=== PATIENT | male | born 1990 | race African-American/Black ===

== ENCOUNTER 2020-10-28 09:40 | Outpatient (REF) | payer MEDICAID, SELFPAY | END 2020-10-28 09:41 | disposition home or self-care (01) | LOC: HO.SCI 09:40 | PROVIDERS: Visit Provider Family Medicine | DX: Z13.89 Encounter for screening for other disorder (principal) ==

== ENCOUNTER 2020-11-26 11:14 | Outpatient (REF) | payer MEDICAID, SELFPAY ==
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
== END 2020-11-26 11:15 | disposition home or self-care (01) ==
LOC: HO.XRAY 11:14
PROVIDERS: PCP Family Medicine; Visit Provider Family Medicine
DX: M79.631 Pain in right forearm (principal)
CPT/HCPCS: 73080; 73090

== ENCOUNTER 2020-12-19 09:54 | Outpatient (REF) | payer MEDICAID, SELFPAY ==
--- NOTE | 2020-12-19 10:00 | EMG_ITS ---
Right median and ulnar motor and sensory studies were obtained. Right radial sensory study was obtained and paraspinal muscles were tested. IMPRESSION: Mild right ulnar neuropathy across cubital tunnel. MD ADY Moreland/[facility]IS / [id number]
== END 2020-12-19 09:55 | disposition home or self-care (01) ==
LOC: HO.NEURO 09:54
PROVIDERS: PCP Family Medicine; Visit Provider Family Medicine
DX: M79.631 Pain in right forearm (principal)
CPT/HCPCS: 95886; 95909

== ENCOUNTER → 2021-01-03 10:31 | Outpatient (BNVA) | payer MEDICAID, SELFPAY | PROVIDERS: PCP Family Medicine; Visit Provider Nurse Practitioner Family | DX: G56.21 Lesion of ulnar nerve, right upper limb (principal); M79.631 Pain in right forearm | CPT/HCPCS: 99202 ==

== ENCOUNTER → 2021-01-29 14:59 | Outpatient (BNVA) | payer MEDICAID, SELFPAY | PROVIDERS: Visit Provider Nurse Practitioner Family ==

== ENCOUNTER 2021-06-26 11:25 | Emergency (ER) | payer MEDICAID, SELFPAY ==
--- NOTE | ~2021-06-26 | XR_ITS ---
EXAMINATION: RIGHT ELBOW AND RIGHT FOREARM. CLINICAL INFORMATION: Pain and swelling COMPARISON: Right elbow and right forearm 11/26/2020 TECHNIQUE: 4 views right elbow and 2 views right forearm FINDINGS: Right elbow: There is a stabilized proximal ulnar fracture with metallic plate and screws in satisfactory alignment. There is no change in the hardware or the screws from previous study 11/26/2020. There is a loose body seen anterior to the radius unchanged to previous study. There is no abnormal joint effusion. No recurrent fracture seen. XR/XR elbow RT 2V IMPRESSION: Postsurgical proximal ulna, stable. Small bone fragment anterior to radius is stable. No acute fracture or joint effusion seen.
--- NOTE | ~2021-06-26 | XR_ITS ---
EXAMINATION: RIGHT ELBOW AND RIGHT FOREARM. CLINICAL INFORMATION: Pain and swelling COMPARISON: Right elbow and right forearm 11/26/2020 TECHNIQUE: 4 views right elbow and 2 views right forearm FINDINGS: Right elbow: There is a stabilized proximal ulnar fracture with metallic plate and screws in satisfactory alignment. There is no change in the hardware or the screws from previous study 11/26/2020. There is a loose body seen anterior to the radius unchanged to previous study. There is no abnormal joint effusion. No recurrent fracture seen. XR/XR forearm RT 2V IMPRESSION: Postsurgical proximal ulna, stable. Small bone fragment anterior to radius is stable. No acute fracture or joint effusion seen.
--- NOTE | ~2021-06-26 | US_ITS ---
EXAMINATION: US VENOUS WITH DOPPLER UPPER EXTREMITY, RIGHT. CLINICAL INFORMATION: Right arm pain COMPARISON: None TECHNIQUE: Ultrasound of the upper extremity is performed using compression sonography and color and pulse Doppler flow with assessment of augmentation of flow. There is also imaging and Doppler assessment of the jugular and subclavian veins. Spectral analysis with color-flow imaging is performed. FINDINGS: Respiratory variation, normal compression, and augmented flow are noted throughout the upper extremity including the axillary, brachial, cubital, and radial and ulnar veins. There is normal flow in the internal jugular and subclavian veins. There is no visible deep or superficial thrombophlebitis. If the patient's symptoms progress, a followup ultrasound in 5 -7 days might be of value to exclude proximal propagation from a nonvisualized distal arm vein. US/US venous duplex UE RT IMPRESSION: No DVT demonstrated in the right upper extremity
[2021-06-26 11:28] VITALS: BP 138/97; PULSE 49; RESP 18; TEMP 36.4; O2SAT 99; BMI 25.8
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
[2021-06-26] MEDS: Acetaminophen 325 MG TABLET 650 MG PO (13:34)
--- NOTE | 2021-06-26 13:57 | PC.NURSE ---
PT EVALUATED BY LISET VICK PT AWAKE, ALERT AND ORIENTED X 3. SKIN WARM AND DRY. RESP UNLABORED. RIGHT ARM +CMS. NO ACUTE DISTRESS NOTED. RECEIVED TYLENOL ORDERED.
== END 2021-06-26 14:00 | disposition home or self-care (01) ==
PROVIDERS: Emergency Provider Emergency Medicine
DX: G56.21 Lesion of ulnar nerve, right upper limb (principal); M79.631 Pain in right forearm
CPT/HCPCS: 73070; 73090; 93971; 99283; 99284

== ENCOUNTER 2024-06-23 18:26 | Outpatient (REF) | payer MEDICAID, SELFPAY ==
[2024-06-24 16:45] LABS: CT PCR NOT DETECTED (Not Detect.); NG PCR NOT DETECTED (Not Detect.)
== END 2024-06-23 18:27 | disposition home or self-care (01) ==
LOC: HO.HHCLNP 18:26
PROVIDERS: Visit Provider Internal Medicine
DX: R39.9 Unspecified symptoms and signs involving the genitourinary system (principal)
CPT/HCPCS: 87491; 87591